=== PATIENT | female | born 1990 | race Caucasian/White ===

== ENCOUNTER 2020-07-29 10:22 | Emergency (ER) | payer OTHER ==
[~2020-07-29] VITALS: Ht 167.6 cm; Wt 113.4 kg
[2020-07-29 10:54] VITALS: BP 143/85
== END 2020-07-29 10:55 | disposition home or self-care (01) ==
LOC: M.ERS 10:22
DX: I89.0 Lymphedema, not elsewhere classified (principal); I87.8 Other specified disorders of veins; E66.01 Morbid (severe) obesity due to excess calories; Z68.41 Body mass index [BMI] 40.0-44.9, adult